=== PATIENT | male | born 1950 | race Caucasian/White ===

== ENCOUNTER 2017-02-08 12:04 | Inpatient (IN) | payer OTHER ==
[2017-01-29 18:00] LABS: HEMATOCRIT 41.3 % (40.0-51.0); HEMOGLOBIN 13.9 g/dL (13.6-17.8)
[2017-01-29 18:09] LABS: ASCORBIC ACID (UR NOT ORDER) NEG (NEG); BILIRUBIN, URINE NEGATIVE (NEG); KETONE, URINE NEGATIVE (NEG); LEUKOCYTE ESTERASE(NOT OR NEG (NEG); WBC (NOT ORDERED) (RFLEX) < 1 (0-5)
[2017-01-29 18:13] LABS: BUN (BLOOD UREA NITROGEN) 14 MG/DL (6-23); CALCIUM, SERUM 8.9 MG/DL (8.5-10.4); CHLORIDE, SERUM 104 MMOL/L (96-112); CO2 (CARBON DIOXIDE) 32 MMOL/L (24-34); CREATININE 1.09 MG/DL (0.70-1.30); GFR AFRICAN AMERICAN 80 ML/MIN (>=60); GFR NON AFRICAN AMERICAN 69 ML/MIN (>=60); GLUCOSE, SERUM 116 MG/DL (60-99); POTASSIUM, SERUM 3.4 MMOL/L (3.5-5.3); SODIUM, SERUM 145 MMOL/L (135-148)
--- NOTE | ~2017-02-08 | OP ---
Record Of Operation [facility] [address] [place]. [address] NAME: NAKUL BOBO : 46 STATUS : ADM IN PAT#: [id number] AGE: 66 ADM/REG DATE : 02/08/17 MR#: [id number] REPORT SERV DATE: 02/08/17 DICTATED BY: JACOB FLOWERS DATE: 02/08/17 REPORT STATUS : Draft TRANSCRIBED BY: MODL DATE: 02/08/17 DATE OF PROCEDURE: 02/08/2017 SURGEON: Jacob Flowers MD TITLE OF OPERATION: 1. Robotic-assisted laparoscopic radical prostatectomy. 2. Robotic-assisted laparoscopic bilateral extended pelvic lymph node dissection. PREOPERATIVE DIAGNOSIS: High risk prostate cancer. POSTOPERATIVE DIAGNOSIS: High risk prostate cancer. INDICATIONS: Mr. Bobo is a 66-year-old male, with high risk prostate cancer. He was consented regarding his options including radical prostatectomy, radiation therapy. He has elected for radical prostatectomy. ANESTHESIA: General. COMPLICATIONS: None. IMPLANTS: 1. An 18-Libyan Zabala catheter. 2. #10 ORALIA drain. SPECIMEN: 1. Prostate. 2. Pelvic lymph nodes. 3. Anterior fat pad. NARRATIVE: The patient was brought to the operating room, identified by his wristband. General anesthesia was induced and Ancef was given for preoperative antibiotics. He was placed in the dorsal lithotomy position, prepped and draped in sterile fashion. The abdomen was insufflated to a pressure of 15 mmHg using a Veress needle. A 5 mm supraumbilical incision was made. An 8 mm port was placed into the belly under direct vision. The abdomen was inspected. There were no significant adhesions. Two 8 mm ports were placed in the left side of the body and a fourth 8 mm ports placed in the right side of the body. A 12 mm port was placed in the right lower quadrant and a 5 mm port was placed in the right upper quadrant for licensed investment sales assistant port. The patient was placed in Trendelenburg. The robot was docked. I began the operation by incising the peritoneum overlying the seminal vesicles and vas deferens. These structures were dissected out bilaterally. The vas deferens were clipped and divided bilaterally. The pedicle to the seminal vesicles were clipped and divided bilaterally. Once these structures were dissected free. They were grasped and pulled anteriorly. The Denonvilliers fascia was sharply incised. The Denonvilliers fascia was left on the prostate given the high-risk disease. I reflected the rectum off the prostate from the base to the apex. Next, the bladder was dropped off the anterior Record Of Operation [facility] [address] [place]. [address] NAME: NAKUL BOBO : 46 STATUS : ADM IN PAT#: [id number] AGE: 66 ADM/REG DATE : 02/08/17 MR#: [id number] REPORT SERV DATE: 02/08/17 DICTATED BY: JACOB FLOWERS DATE: 02/08/17 REPORT STATUS : Draft TRANSCRIBED BY: MODWu DATE: 02/08/17 abdominal wall with electrocautery. The medial and median umbilical ligaments were divided with cautery. The prostate was then exposed. The fiber fatty tissue overlying the prostate and endopelvic fascia were sharply removed with bipolar cautery and scissors, and sent to pathology as anterior fat pad. The endopelvic fascia was sharply divided bilaterally the puboprostatic ligaments were divided bilaterally. Care was taken to reflect to the levator fibers off the prostate bilaterally. The dorsal vein was precisely identified and stapled with 35 mm reticulating endovascular stapler. The urethra was circumferentially dissected. Next, a bladder neck preservation operation was performed. The fibrofatty tissue overlying the bladder neck was divided with bipolar cautery and scissors. Once the bladder neck was exposed, it was sharply divided. There was no evidence of induration or cancer in this area. The bladder was then taken off the base of the prostate with electrocautery. The posterior bladder neck was then divided. The dissection was carried inferiorly to expose the previously dissected out seminal vesicles and vas deferens. These were delivered into the operative field. The pedicles to the prostate were then clipped bilaterally. A non- nerve sparing operation was performed. The tissue was left on the prostate bilaterally. Next, the urethra was divided with care taken to leave adequate urethral length. The posterior striated sphincter was then sharply divided. The prostate was free and then placed into an EndoCatch bag. Next, attention was turned to the lymph nodes. On the right side, all fibrofatty tissue beneath the external iliac vein, the obturator fossa, and internal iliac vessels was clipped and divided and removed. Care was taken to clip the lymphatics bilaterally. The obturator nerve was spared. Similarly ,on the right side, all fibrofatty tissue beneath the external iliac vein, and the obturator fossa, and around the internal iliac vessels was removed. Care was taken to clip the lymphatics proximally and distally. The obturator nerve was spared. This was extended pelvic lymph node dissection bilaterally. A 3-0 V-Loc suture was used to suspend the dorsal vein and urethra to aid in recovery of continence. This was placed through the dorsal vein several times into the pubic bone periosteum, it was clipped and tension was applied. Next, the posterior striated sphincter was reconstructed to the base of the bladder in a manner described by Derrick. Finally, a vesicourethral anastomosis was performed with interlocked 3-0 V-Loc sutures. An 18-Libyan Zabala catheter was placed. The bladder was irrigated and the anastomosis was watertight. The balloon was inflated with 15 mL of sterile water. The robot was then undocked. The licensed investment sales assistant port was closed with a 0 Vicryl suture using Tre-Nelia device. A #10 ORALIA drain was placed through the left lateral robotic port. All ports were removed under direct vision. The supraumbilical incision was enlarged at the skin and fascia level. The prostate and lymph nodes were removed in their respective EndoCatch bags. The fascia was closed with interrupted 0 Monocryl sutures in a [id number] fashion. The wounds were irrigated clear. The subcutaneous tissues were closed with 3-0 Vicryl suture. Skin was closed with 4-0 Monocryl suture. Dermabond dressing was placed. A TAP block was placed preoperatively. The urine was clear. The patient was awoken from anesthesia and transferred to recovery room in stable condition. There were no complications. CAROLYN/CHRIS Jacob Flowers MD Record Of Operation [facility] [address] [facility] [place]. [address] NAME: NAKUL BOBO : 46 STATUS : ADM IN [facility]#: [id number] AGE: 66 ADM/REG DATE : 02/08/17 MR#: [id number] REPORT SERV DATE: 02/08/17 DICTATED BY: JACOB FLOWERS DATE: 02/08/17 REPORT STATUS : Draft TRANSCRIBED BY: CHRIS DATE: 02/08/17 / [id number] CC: MD Celestino Garcia MD
[~2017-02-08 12:04] MED LIST: COZ25 PO; FIORICET 50-301 EACH PO; INHALERS; LIPITOR20 PO; NORV5 PO; PRILO PO; SYN075 PO; VITAMINS; [UNRECOGNIZED DRUG - OTHER]
[2017-02-08 17:16] LABS: BASOPHILS 0.5 %; BASOPHILS ABSOLUTE 0.04 10/3/uL (0.0-0.16); EOSINOPHILS 0.5 %; EOSINOPHILS ABSOLUTE 0.04 10/3/uL (0.0-0.53); HEMATOCRIT 37.2 % (40.0-51.0); HEMOGLOBIN 13.2 g/dL (13.6-17.8); IMMATURE GRANULOCYTES 0.2 %; IMMATURE GRANULOCYTES ABSOLUTE 0.02 10/3/uL (0.0-0.11); LYMPHOCYTES 7.7 %; LYMPHOCYTES ABSOLUTE 0.65 10/3/uL (0.67-4.30); MEAN CORPUS HGB CONC 35.5 g/dL (32.0-36.0); MEAN CORPUSCULAR HEMOGLOB 30.8 pg (26.0-34.0); MEAN CORPUSCULAR VOLUME 86.7 fL (80-100); MEAN PLATELET VOLUME 9.4 fL (9.2-13.0); MONOCYTES 1.4 %; MONOCYTES ABSOLUTE 0.12 10/3/uL (0.21-1.20); NEUTROPHILS 89.7 %; NEUTROPHILS ABSOLUTE 7.59 10/3/uL (2.02-8.40); PLATELET COUNT 159 10/3/uL (150-400); RBC DISTRIBUTION WIDTH 12.7 % (12.0-16.0); RED CELL COUNT 4.29 10/6/uL (4.7-6.1); WHITE BLOOD CELLS 8.5 10/3/uL (4.5-10.5)
[2017-02-08 17:17] LABS: MANUAL DIFF NO %
[2017-02-08 17:22] LABS: BUN (BLOOD UREA NITROGEN) 8 MG/DL (6-23); CALCIUM, SERUM 8.3 MG/DL (8.5-10.4); CHLORIDE, SERUM 103 MMOL/L (96-112); CO2 (CARBON DIOXIDE) 31 MMOL/L (24-34); CREATININE 0.98 MG/DL (0.70-1.30); GFR AFRICAN AMERICAN 91 ML/MIN (>=60); GFR NON AFRICAN AMERICAN 79 ML/MIN (>=60); GLUCOSE, SERUM 122 MG/DL (60-99); POTASSIUM, SERUM 3.4 MMOL/L (3.5-5.3); SODIUM, SERUM 143 MMOL/L (135-148)
[2017-02-09 05:42] LABS: BASOPHILS 0 %; EOSINOPHILS 0 %; HEMATOCRIT 36.4 % (40.0-51.0); HEMOGLOBIN 12.7 g/dL (13.6-17.8); IMMATURE GRANULOCYTES 0.3 %; IMMATURE GRANULOCYTES ABSOLUTE 0.03 10/3/uL (0.0-0.11); LYMPHOCYTES 6.4 %; LYMPHOCYTES ABSOLUTE 0.64 10/3/uL (0.67-4.30); MEAN CORPUS HGB CONC 34.9 g/dL (32.0-36.0); MEAN CORPUSCULAR HEMOGLOB 29.9 pg (26.0-34.0); MEAN CORPUSCULAR VOLUME 85.6 fL (80-100); MEAN PLATELET VOLUME 9.6 fL (9.2-13.0); MONOCYTES 7.1 %; MONOCYTES ABSOLUTE 0.71 10/3/uL (0.21-1.20); NEUTROPHILS 86.2 %; NEUTROPHILS ABSOLUTE 8.65 10/3/uL (2.02-8.40); PLATELET COUNT 187 10/3/uL (150-400); RBC DISTRIBUTION WIDTH 12.6 % (12.0-16.0); RED CELL COUNT 4.25 10/6/uL (4.7-6.1)
[2017-02-09 05:43] LABS: MANUAL DIFF NO %
[2017-02-09 05:51] LABS: BUN (BLOOD UREA NITROGEN) 11 MG/DL (6-23); CALCIUM, SERUM 8.5 MG/DL (8.5-10.4); CHLORIDE, SERUM 104 MMOL/L (96-112); CO2 (CARBON DIOXIDE) 29 MMOL/L (24-34); CREATININE 0.98 MG/DL (0.70-1.30); GFR AFRICAN AMERICAN 91 ML/MIN (>=60); GFR NON AFRICAN AMERICAN 79 ML/MIN (>=60); POTASSIUM, SERUM 3.8 MMOL/L (3.5-5.3); SODIUM, SERUM 142 MMOL/L (135-148)
[2017-02-09 05:53] LABS: GLUCOSE, SERUM 171 MG/DL (60-99)
[2017-02-09] MEDS ORDERED: DSS PO (09:18)
[2017-02-09] MEDS ORDERED: PCET PO (09:18)
[2017-02-09] MEDS ORDERED: VIAGRA100 MG PO (09:19)
[2017-02-09] MEDS ORDERED: BACTRIM DS1 TAB PO (09:19)
== END 2017-02-10 13:45 | disposition home or self-care (01) | DRG 708 ==
LOC: SDC/OF 12:04 → 4SO 18:31
PROVIDERS: Urology
PROC: 0VT04ZZ Resection of Prostate, Percutaneous Endoscopic Approach (ICD-10-PCS; principal; 2017-02-08 14:30)
PROC: 0VT34ZZ Resection of Bilateral Seminal Vesicles, Percutaneous Endoscopic Approach (ICD-10-PCS; principal; 2017-02-08 14:30)
PROC: 8E0W4CZ Robotic Assisted Procedure of Trunk Region, Percutaneous Endoscopic Approach (ICD-10-PCS; principal; 2017-02-08 14:30)
PROC: 07TC4ZZ Resection of Pelvis Lymphatic, Percutaneous Endoscopic Approach (ICD-10-PCS; principal; 2017-02-08 14:30)
PROC: 0VBQ4ZZ Excision of Bilateral Vas Deferens, Percutaneous Endoscopic Approach (ICD-10-PCS; principal; 2017-02-08 14:30)
DX: C61 Malignant neoplasm of prostate (principal); I10 Essential (primary) hypertension; E03.9 Hypothyroidism, unspecified
CPT/HCPCS: 36415; 80048; 81001; 82570; 85014; 85018; 85025; 86850; 86900; 86901; 88304; 88307; 88309; 88341; 88342; 93005; A9270-GY; J0461; J0690; J1885; J2250; J2405; J2710; J2795; J3010